=== PATIENT | male | born 1950 | race Caucasian/White ===

== ENCOUNTER 2016-10-14 09:14 | Outpatient (CLI) | payer MEDICARE, OTHER | END 2016-10-14 09:15 | disposition home or self-care (01) | DX: G47.30 Sleep apnea, unspecified (principal); G47.8 Other sleep disorders; G47.10 Hypersomnia, unspecified; R06.83 Snoring | CPT/HCPCS: 99203; G0463 ==

== ENCOUNTER 2016-11-06 20:01 | Outpatient (CLI) | payer MEDICARE, OTHER | END 2016-11-06 20:02 | disposition home or self-care (01) | LOC: SC 20:01 | PROVIDERS: ATTEND Internal Medicine Pulmonary Disease | DX: G47.33 Obstructive sleep apnea (adult) (pediatric) (principal); Z68.39 Body mass index [BMI] 39.0-39.9, adult | CPT/HCPCS: 95810 ==

== ENCOUNTER 2016-11-18 09:17 | Outpatient (CLI) | payer MEDICARE, OTHER | END 2016-11-18 09:18 | disposition home or self-care (01) | DX: G47.33 Obstructive sleep apnea (adult) (pediatric) (principal); I49.8 Other specified cardiac arrhythmias | CPT/HCPCS: 99214; G0463 ==

== ENCOUNTER 2017-03-13 15:01 | Outpatient (CLI) | payer MEDICARE, OTHER ==
--- NOTE | 2017-03-13 21:16 | XRAY Report ---
TWO VIEW CHEST: 03/13/2017 CLINICAL INDICATION: Chest pain, pressure, shortness of breath. COMPARISON: 05/12/2015 Frontal and lateral views of the chest demonstrate a normal cardiac silhouette. The lungs are hyperi nflated, compatible with COPD, with basilar atelectasis. No focal infiltrate, effusion, or pneumotho rax is present. IMPRESSION: COPD. NO EVIDENCE OF ACUTE CARDIOPULMONARY DISEASE. JOB #: [id number] EXT JOB #:[id number]
== END 2017-03-13 15:02 | disposition home or self-care (01) ==
LOC: DI.S 15:01
PROVIDERS: ATTEND Nurse Practitioner Family
DX: J44.9 Chronic obstructive pulmonary disease, unspecified (principal); R07.9 Chest pain, unspecified; R06.02 Shortness of breath
CPT/HCPCS: 71020; 93005

== ENCOUNTER 2017-05-15 13:32 | Outpatient (CLI) | payer MEDICARE, OTHER ==
--- NOTE | 2017-05-15 14:59 | XRAY Report ---
TWO-VIEW CHEST: 05/15/2017 CLINICAL INDICATION: COPD. COMPARISON: 03/13/2017 FINDINGS: Frontal and lateral views of the chest demonstrate a normal cardiac silhouette. The lungs remain hyperinflated, compatible with COPD, with linear scarring or atelectasis at the bases. No fo tiny consolidation, effusion, or pneumothorax is present. IMPRESSION: STABLE COPD. NO EVIDENCE OF ACUTE CARDIOPULMONARY DISEASE. JOB #: [id number] EXT JOB #:[id number]
== END 2017-05-15 13:33 | disposition home or self-care (01) ==
LOC: DI.S 13:32
PROVIDERS: ATTEND Nurse Practitioner Family
DX: J44.9 Chronic obstructive pulmonary disease, unspecified (principal)
CPT/HCPCS: 71020

== ENCOUNTER 2017-05-22 10:20 | Outpatient (CLI) | payer MEDICARE, OTHER ==
--- NOTE | 2017-05-22 13:00 | CARDIAC PROCEDURE NOTE ---
DATE OF SERVICE: 05/22/2017 00:00:00 PRIMARY CARE PHYSICIAN: Sharon Tomlin PA-C CARDIAC RISK FACTORS: Include age, diabetes, hypertension and hyperlipidemia. PREVIOUS CARDIAC PROCEDURES: No previous cardiac procedures. CLINICAL HISTORY: A 67-year-old male without known coronary artery disease but EKG evidence of Q-waves in V1 through V3. The patient held all of his antihypertensives this morning. PROCEDURE AND FINDINGS: The patient's identity and date verified. Consent signed. The patient performed treadmill exercise using a modified Riley protocol due to knee pain, completing 9 minutes 58 seconds and completing an estimated workload of 4.6 (METS) metabolic equivalents. Predicted METS was 7.2. Maximal blood pressure was 234/84 with a heart rate of 120 beats per minute or 79% of maximum predicted heart rate for age. The blood pressure response to exercise was hypertensive. The patient stopped because he was short of breath. The resting ECG demonstrated normal sinus rhythm with 1st degree AV block, late transition and Q-waves in leads V1 through V3. Maximal ST segment depression was less than 0.5 mm and upsloping. There were occasional PACs. The 1 minute heart rate recovery was within normal limits. FINAL IMPRESSION 1. Suboptimal test at 79% maximum age-predicted heart rate. 2. Negative stress electrocardiogram for ischemia by electrocardiographic criteria. 3. Negative stress test clinically for angina. Recovery from tachypnea took several minutes. 4. Occasional premature atrial contractions. JOB #: [id number] EXT JOB #:[id number]
[2017-05-22 17:08] VITALS: BP 162/88
--- NOTE | 2017-05-26 13:10 | XRAY Report ---
There was no imaging performed for this exam. Procedure notes and results available in the EMR. GABRIELLE
== END 2017-05-22 10:21 | disposition home or self-care (01) ==
LOC: DI 10:20
PROVIDERS: ATTEND Nurse Practitioner Family
DX: R94.31 Abnormal electrocardiogram [ECG] [EKG] (principal); R06.02 Shortness of breath
CPT/HCPCS: 93017

== ENCOUNTER 2017-11-17 08:47 | Outpatient (CLI) | payer MEDICARE, OTHER | END 2017-11-17 08:48 | disposition EMS.NT | LOC: EMS 08:47 | PROVIDERS: ATTEND Surgery | DX: Z77.098 Contact with and (suspected) exposure to other hazardous, chiefly nonmedicinal, chemicals (principal) ==

== ENCOUNTER 2019-06-22 09:17 | Outpatient (CLI) | payer MEDICARE, OTHER ==
[2019-06-22 09:53] LABS: BASOPHILS % (AUTO) 0.7 %; EOSINOPHILS # (AUTO) 0.2 10^3/uL (0.0-0.7); EOSINOPHILS % (AUTO) 3.9 %; HGB - HEMOGLOBIN 14.8 g/dL (14.0-18.0); LYMPHOCYTES # (AUTO) 1.9 10^3/uL (1.5-3.5); LYMPHOCYTES % (AUTO) 31.8 %; MEAN CORPUSCULAR HEMOGLOBIN 28.7 pg (27.0-31.0); MEAN CORPUSCULAR HGB CONC 31.4 g/dL (32.0-36.0); MEAN CORPUSCULAR VOLUME 91.7 fL (80.0-94.0); MEAN PLATELET VOLUME 9.1 fL (7.4-11.4); MONOCYTES # (AUTO) 0.4 10^3/uL (0.0-1.0); MONOCYTES % (AUTO) 7.5 %; NEUTROPHILS # (AUTO) 3.3 10^3/uL (1.5-6.6); NEUTROPHILS % (AUTO) 55.8 %; PLT - PLATELET COUNT 210 10^3/uL (130-450); RED BLOOD COUNT 5.15 10^6/uL (4.70-6.10); RED CELL DISTRIBUTION WIDTH 13.4 % (12.0-15.0); WHITE BLOOD COUNT 5.8 x10^3/uL (4.8-10.8)
[2019-06-22 10:15] LABS: HB2 TOTAL 15.8 g/dL; HEMOGLOBIN A1C 0.72 g/dL; HEMOGLOBIN A1C % 6.3 % (4.6-6.2)
== END 2019-06-22 09:18 | disposition home or self-care (01) ==
LOC: LAB 09:17
PROVIDERS: ATTEND Orthopaedic Surgery
DX: Z01.812 Encounter for preprocedural laboratory examination (principal); R73.9 Hyperglycemia, unspecified
CPT/HCPCS: 36415; 80051; 83036; 85025

== ENCOUNTER 2019-08-02 15:40 | Outpatient (CLI) | payer MEDICARE, OTHER ==
--- NOTE | 2019-08-02 16:08 | SLEEP CARE CONSULTATION ---
Information from patient questionnaire entered by Grazyna Steel. I have reviewed and concur with the information entered by Grazyna Steel. This document represents the service I personally performed and the decisions made by me, Amira De León MD, [facility]. History of Present Illness Previous diagnosis: Very Severe, Obstructive Sleep Apnea-Hypopnea Syndrome AHI: 80.5 Reason for follow up: annual Prior sleep studies: Yes Year and Where: 2016 [facility] additional information: HPI: Mr. Garg returned today for follow up of nasal CPAP therapy. He was diagnosed to have very severe obstructive sleep apnea-hypopnea syndrome over 2 years ago. The patient wore a full face mask. He quit using CPAP 6 months ago because the mask did not fit and had no help from the durable medical supplier at all. He returned the equipment to [facility]. The patient never returned for a follow up at the clinic after prescribed with the CPAP either. Subjective Patient concerns: reports: mask discomfort, other (not fitting correctly) Initial [place] Sleepiness Scale score: 15 Current [place] Sleepiness Scale score: 13 Allergies and Home Medications Drug allergies reviewed: Yes Home medication list reviewed: Yes Review of Systems Review of systems same as previous: Yes Physical Exam Weight: 287 lb Impression and Plan IMPRESSION: 1. Obstructive Sleep Apnea-Hypopnea Syndrome, very severe, presently untreated because his durable medical supplier was not helpful and the patient was non- compliant. To restart the treatment the patient will need a new sleep study, which could be a home sleep apnea test (HSAT). PLAN: 1. Order a home sleep apnea test (the patient does not wish to come into the sleep center for the study). 2. Try to lose weight 3. Prescription made for a new autoCPAP and supplies to a new durable medical supplier in case Medicare does not require a new sleep study. 4. Return for follow up after one month on the new machine. I spent 100% of this 20 minute visit face to face with the patient with greater than 50% of this was spent time counseling the patient and coordination of care.
== END 2019-08-02 15:41 | disposition home or self-care (01) ==
LOC: SC 15:40
PROVIDERS: ATTEND Internal Medicine Pulmonary Disease
DX: G47.33 Obstructive sleep apnea (adult) (pediatric) (principal)
CPT/HCPCS: 99213; G0463; 99212

== ENCOUNTER 2019-11-25 07:48 | Outpatient (CLI) | payer MEDICARE, OTHER ==
[2019-11-25 10:07] LABS: ALBUMIN 4.2 g/dL (3.2-5.5); ALBUMIN/GLOBULIN RATIO 1.2 (1.0-2.2); ALKALINE PHOSPHATASE 61 IU/L (42-121); ALT ALANINE AMINOTRANSFERASE 27 IU/L (10-60); AST ASPARTATE AMINOTRANSFERASE 23 IU/L (10-42); BILIRUBIN,TOTAL 0.3 mg/dL (0.2-1.0); BUN - BLOOD UREA NITROGEN 25 mg/dL (6-20); CALCIUM 9.2 mg/dL (8.5-10.3); CARBON DIOXIDE - CO2 27 mmol/L (21-32); CHLORIDE 96 mmol/L (101-111); CHOL/HDL RATIO 4.1 (<5.0); CHOLESTEROL 168 mg/dL; CREATININE 0.9 mg/dL (0.6-1.2); GLUCOSE 109 mg/dL (70-100); HDL CHOLESTEROL 41 mg/dL; LDL CHOLESTEROL,CALCULATED 88 mg/dL; LDL/HDL RATIO 2.1 (<3.6); SODIUM 136 mmol/L (135-145); TOTAL PROTEIN 7.7 g/dL (6.7-8.2); VLDL CHOLESTEROL 39 mg/dL
[2019-11-25 10:10] LABS: HB2 TOTAL 16.3 g/dL; HEMOGLOBIN A1C 0.68 g/dL
== END 2019-11-25 07:49 | disposition home or self-care (01) ==
LOC: LAB.S 07:48
PROVIDERS: ATTEND Family Medicine
DX: R73.03 Prediabetes (principal); E78.2 Mixed hyperlipidemia; I10 Essential (primary) hypertension
CPT/HCPCS: 36415; 80053; 80061; 83036; 83721

== ENCOUNTER 2019-11-29 16:32 | Outpatient (CLI) | payer MEDICARE, OTHER ==
--- NOTE | 2019-11-29 23:04 | SLEEP CARE CONSULTATION ---
Information from patient questionnaire entered by Shelley Cerrato. I have reviewed and concur with the information entered by Shelley Cerrato. This document represents the service I personally performed and the decisions made by me, Amira De León MD, [facility]. History of Present Illness Initial [place] Sleepiness Scale score: 15 Current [place] Sleepiness Scale score: 8 Additional HPI information: To minimize the risk of COVID-19 exposure, we have the option to conduct your visit with me over the phone. I will be able to discuss your health and offer medical advice. If you agree, we will bill your insurance. Do you agree to this telephone service: YES HPI: Mr. Garg returned for follow up of the sleep study he had on 10/31/2019. The polysomnography showed that the patient had slightly reduced sleep efficiency due to several awakenings after the sleep onset. The sleep architecture was abnormal for sleep fragmentation and reduced amount of time spent in REM and slow wave sleep (N3). Respiratory monitoring showed severe obstructive sleep apnea-hypopnea (AHI = 82.6) associated with frequent arousals, oxyhemoglobin desaturation and moderate hypoxia (marivel oxygen saturation of 63 %). The respiratory events occurred independently of sleep stage and body position (supine AHI = 99.6; non-supine = 80.90). Snore was loud in intensity. There was no significant periodic leg movement of sleep. Cardiac rhythm was sinus rhythm with occasional premature atrial and ventricular contractions and a 20-beat run of accelerated idioventricular rhythm. No abnormal behavior (parasomnia) observed during the night. The patient was informed of these findings. I explained to him the pathophysiology behind obstructive sleep apnea. We then spent quite a bit of time discussing different treatment options. For mild obstructive sleep apnea, surgery and oral appliance are alternatives to nasal CPAP therapy but in moderate or severe cases, nasal CPAP is the most effective and reliable treatment. Weight loss in an obese individual is strongly recommended. After some discussion, he opted use CPAP again. The patient used CPAP for many years but quit last year due to lack of supplies. Allergies and Home Medications Drug allergies reviewed: Yes Home medication list reviewed: Yes Review of Systems Review of systems same as previous: Yes Physical Exam Height: 6 ft Impression and Plan IMPRESSION: 1. Obstructive Sleep Apnea-Hypopnea Syndrome, very severe, associated with severe hypoxemia and sleep fragmentation. Obviously this is the cause of the patients symptoms of unrefreshed sleep, and excessive daytime sleepiness. As mentioned above, the patient will be started on an autoCPAP set at 4 - 15 cmH2O. Depending on his response and compliance he may be brought back for an overnight CPAP titration study. PLAN: 1. Prescription made for an autoCPAP, heated humidifier, and related supplies. 2. Attempt to lose weight and avoid alcohol consumption near bedtime. 3. The patient is again cautioned about driving until his sleepiness completely resolves on the CPAP therapy. 4. Return in six weeks for follow up. I will assess his response and compliance at that time. I spent 100% of the 12 minute phone call with the patient with greater than 50% of this spent counseling the patient and coordination of care.
== END 2019-11-29 16:33 | disposition home or self-care (01) ==
LOC: SC 16:32
PROVIDERS: ATTEND Internal Medicine Pulmonary Disease
DX: G47.33 Obstructive sleep apnea (adult) (pediatric) (principal)

== ENCOUNTER 2020-06-15 14:26 | Outpatient (CLI) | payer MEDICARE, OTHER ==
--- NOTE | 2020-06-15 14:52 | SLEEP CARE CONSULTATION ---
Information from patient questionnaire entered by Shelley Cerrato. I have reviewed and concur with the information entered by Shelley Cerrato. This document represents the service I personally performed and the decisions made by me, Sandhya Luna, RN, MSN, [employer]. History of Present Illness Service Date and Time: 06/15/2020 1400 Previous diagnosis: Severe, Obstructive Sleep Apnea-Hypopnea Syndrome AHI: 82.6 (in 2020 (80.5 in 2017) Reason for follow up: other (2 month with pressure change) Equipment type: CPAP Equipment obtained from: [employer] (in [place]) Mask style: Full face Mask brand: Resmed (Air fit) Backup mask available: Yes Last cushion change: about Prior sleep studies: Yes Year and Where: 2016 and 2019 - [facility] HPI additional information: Reviewed last visit notes. He purchased 2 new masks out of pocket and has not noticed any change in mask fit even with adjustment. CPAP Compliance Data - Data Reviewed with Patient Average duration of nightly device use: 6.75 Compliance rate %: 95 Current pressure setting (cmH2O): 14-18 Humidity settin Heated hose settin Average residual AHI: 6.5 Average large leak: 3 hr 17 min 36 sec Subjective Patient concerns: reports: dry mouth, nose, throat. denies: aerophagia, mask discomfort, air blowing in eyes, mask leak noise, condensation in mask/hose, nasal congestion, epistaxis Current pressure setting perceived as: comfortable On therapy, patient: reports: other (no change ). denies: sleeping better, awakening more refreshed, being more awake and alert during the day, more rested overall, drowsiness while driving Initial [place] Sleepiness Scale score: 15 (in 2017) Allergies and Home Medications Home medication list reviewed: No (no changes) Review of Systems Review of systems same as previous: Yes Physical Exam Height: 6 ft Impression and Plan 1. Obstructive Sleep Apnea-Hypopnea Syndrome, very severe, with good treatment compliance and mild residual AHI. The residual has reduced from 11.4 to 6.5 with last pressure adjustment. Thus I will keep this pressure as best so far in controlling apnea and if I raise the pressure any higher, the patient will experience more mask leaks. He voices frustration with finding a better fitting mask. He bought 2 out of pocket but fit no better. I offered a mask refitting and he declined as this would also be out of pocket. He was informed he can track mask leaks on device. He is also reporting oral dryness but does not use humidity as the reservoir leaks or the connection. I advised to have it checked for malfunction as the reservoir may need to be replaced but patient declined. He was counseled how oral dryness can cause dental caries and can use an oral rinse but declined. On CPAP therapy, the patient has noted no change. Patient's apnea severity and rationale for treatment to reduce apnea, improve sleep quality and reduce cardiovascular and cerebrovascular events was reviewed. I also reviewed the benefit of consistent device use of CPAP for hypertension. He is morbidly obese and aware of need to reduce weight. If he does start losing weight it can reduce his apnea and his CPAP pressure requirements so his pressure may need to be adjusted if significant weight loss. Symptoms to report for future pressure adjustment discussed. * Continue auto CPAP pressure at 14-18 cmH2O * Consider mask refitting when due * Consider replacement of reservoir * Notify me if snoring with mask or feeling that the pressure is too much or too little * Attempt to lose weight * Call this office if any problems using CPAP * Return for follow up in 1 year , or sooner if concerns arise Visit Type: Telehealth Phone Patient Location: Home Location of Provider: Office Patient agrees and consents to this telehealth visit type: Yes Patient agrees to have their insurance billed: Yes Time Spent with Patient (minutes): 17 Provider Statement: I spent 100% of the Telehealth Phone Call with the patient with greater than 50% spent counseling the patient and coordination of care.
== END 2020-06-15 14:27 | disposition home or self-care (01) ==
LOC: SC 14:26
PROVIDERS: ATTEND Nurse Practitioner Family
DX: G47.33 Obstructive sleep apnea (adult) (pediatric) (principal)

== ENCOUNTER 2022-03-23 08:00 | Outpatient (CLI) | payer MEDICARE, OTHER ==
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
== END 2022-03-23 23:59 | disposition home or self-care (01) ==
LOC: DI.S 08:00
PROVIDERS: ATTEND Physician Assistant
DX: M19.031 Primary osteoarthritis, right wrist (principal); M18.11 Unilateral primary osteoarthritis of first carpometacarpal joint, right hand; M19.041 Primary osteoarthritis, right hand

== ENCOUNTER 2022-06-24 14:17 | Outpatient (CLI) | payer MEDICARE, OTHER ==
[2022-06-24 16:34] VITALS: BP 126/62
--- NOTE | 2022-06-24 16:34 | SLEEP CARE CONSULTATION ---
Information from patient questionnaire entered by Suzan Culver. I have reviewed and concur with the information entered by Suzan Culver. This document represents the service I personally performed and the decisions made by me, Amira De León MD, [facility]. History of Present Illness Service Date and Time: 06/24/2022 1417 Previous diagnosis: Severe, Obstructive Sleep Apnea-Hypopnea Syndrome AHI: 82.6 (in 2020 (80.5 in 2017) Reason for follow up: annual (LAST SEEN 06/2021) Equipment type: CPAP (DREAMSTATION) Equipment obtained from: [employer] (in [place]) Mask style: Full face Prior sleep studies: Yes Year and Where: 2016 and 2019 - [facility] HPI additional information: Mr. Garg was diagnosed to have very severe obstructive sleep apnea-hypopnea syndrome and returns today for an annual follow up of CPAP therapy. The patient purchased the device from [employer] and was fitted with a full face mask. He said he has not used the CPAP for several months now. This is because his insomnia got worse and the CPAP made it harder to fall asleep. He was prescribed with zolpidem which no longer works. He goes to bed at 8 pm and gets out of bed at 4:30 am. He falls asleep again around 7 am watching TV for about 2 3 hours. Then, around 4 pm, he may sleep for another 1 2 hours. He complains of excessive daytime sleepiness which makes him quit driving. Sleep Study - Results Prior sleep studies: Yes Year and Where: 2016 and 2019 - [facility] CPAP Compliance Data - Data Reviewed with Patient Average duration of nightly device use: 5HRS,51MIN,6SEC Compliance rate %: 86.1 (01/16/2020-07/13/2020) Current pressure setting (cmH2O): 14-18 Average residual AHI: 11.5 Subjective Initial [place] Sleepiness Scale score: 15 (in 2017) Current [place] Sleepiness Scale score: 15 (06/24/2022) Allergies and Home Medications Drug allergies reviewed: Yes Home medication list reviewed: Yes Review of Systems Review of systems same as previous: Yes Physical Exam Vital signs obtained and entered by: YRIS CEDEÑO Blood Pressure: 126/62 (left arm) Cuff size: long Heart Rate: 66 O2 Saturation: 91 Height: 6 ft Weight: 304 lb 6.4 oz Body Mass Index: 41.3 BMI Classification: Morbidly Obese Impression and Plan IMPRESSION: 1. Obstructive Sleep Apnea-Hypopnea Syndrome, very severe (AHI was 80.5 in 2017) with the patient not using his CPAP due to worsening insomnia. His insomnia is worse because he has been feeling tired and less active during the day and taking more naps, totaling up to 5 hours. Therefore, he is sleeping significantly less at night. His weight has gone up 20 lbs since his sleep study in 2017. To improve his insomnia, he should avoid sleeping during the day. The patient would like a medication that can help him stay awake during the day. PLAN: 1. Continue with autoCPAP set at 14 - 18 cm H2O. 2. Try to lose weight 3. Avoid naps during the day. 4. Modafinil 200 mg in the morning. 5. Return in one month for a follow up. Counseling Topics: Weight control, Activity level Follow up with Sleep Care in: 1-2 months Visit Type: In Office Time Spent with Patient (minutes): 20 Provider Statement: I spent 100% of the Face to Face Visit with the patient with greater than 50% spent counseling the patient and coordination of care.
== END 2022-06-24 14:18 | disposition home or self-care (01) ==
LOC: SC 14:17
PROVIDERS: ATTEND Internal Medicine Pulmonary Disease
DX: G47.33 Obstructive sleep apnea (adult) (pediatric) (principal); E66.01 Morbid (severe) obesity due to excess calories; Z68.41 Body mass index [BMI] 40.0-44.9, adult
CPT/HCPCS: 99213; G0463; 99212

== ENCOUNTER 2022-07-22 13:30 | Outpatient (CLI) | payer MEDICARE, OTHER ==
[2022-07-22 21:46] VITALS: BP 142/70
--- NOTE | 2022-07-22 21:46 | SLEEP CARE CONSULTATION ---
Information from patient questionnaire entered by Sandy Llanos. I have reviewed and concur with the information entered by Sandy Llanos. This document represents the service I personally performed and the decisions made by me, Amira De León MD, [facility]. History of Present Illness Service Date and Time: 07/22/2022 1330 Previous diagnosis: Severe, Obstructive Sleep Apnea-Hypopnea Syndrome AHI: 82.6 (in 2020 (80.5 in 2017) Reason for follow up: one month Equipment type: CPAP (DREAMSTATION) Equipment obtained from: [employer] (in [place]) Mask style: Full face [facility]: Yes [facility] additional information: Mr. Garg was diagnosed to have very severe obstructive sleep apnea-hypopnea syndrome and returns today for an annual follow up of CPAP therapy. The patient purchased the device from [employer] and was fitted with a Respironics DreamWear nasal cushion mask full face mask. He did not the CPAP for several months. This was because his insomnia got worse, and the CPAP made it harder to fall asleep. He was prescribed with zolpidem which no longer works. He goes to bed at 8 pm and gets out of bed at 4:30 am. He falls asleep again around 7 am watching TV for about 2 3 hours. Then, around 4 pm, he may sleep for another 1 2 hours. He complains of excessive daytime sleepiness which makes him quit driving. I prescribed him modafinil 200 mg in the morning. He says that has been sleeping normally at night now but is still feeling depressed. He does not think that modafinil works. He is trying very hard to not nap during the day. He feels that the current pressure of 14 18 cmH2O is too high. Sleep Study - Results Prior sleep studies: Yes [facility] and [facility] Subjective Initial [place] Sleepiness Scale score: 15 (in 2017) Current [place] Sleepiness Scale score: 11 (07/22/22) Allergies and Home Medications Drug allergies reviewed: Yes Home medication list reviewed: Yes Review of Systems Review of systems same as previous: Yes Physical Exam Vital signs obtained and entered by: YRIS MCGEE Blood Pressure: 142/70 (right arm ) Cuff size: long Heart Rate: 91 O2 Saturation: 91 Height: 6 ft Weight: 296 lb Body Mass Index: 40.1 BMI Classification: Morbidly Obese Impression and Plan IMPRESSION: 1. Obstructive Sleep Apnea-Hypopnea Syndrome, very severe (AHI was 80.5 in 2017) with the patient back using his CPAP. According to him, he is again sleeping normally at night. He may continue to take modafinil as needed. For his comfort, I will lower the pressure to 10 16 cmH2O. Because the [facility] website is not working today, we will hold on to his memory card and mail it back to him later when we are able to change the pressure on it. PLAN: 1. Lower autoCPAP to 10 - 16 cm H2O on the memory card. 2. Try to lose weight 3. Take modafinil on as needed basis. 4. Return in one year. Adjust device pressure to (cmH2O): 10 - 16 Counseling Topics: Weight loss health impact Follow up with Sleep Care in: 1 year Follow up recommended for: Weight management Visit Type: In Office Time Spent with Patient (minutes): 15 Provider Statement: I spent 100% of the Face to Face Visit with the patient with greater than 50% spent counseling the patient and coordination of care.
== END 2022-07-22 13:31 | disposition home or self-care (01) ==
LOC: SC 13:30
PROVIDERS: ATTEND Internal Medicine Pulmonary Disease
DX: G47.33 Obstructive sleep apnea (adult) (pediatric) (principal); E66.01 Morbid (severe) obesity due to excess calories; Z68.41 Body mass index [BMI] 40.0-44.9, adult
CPT/HCPCS: 99212; G0463

== ENCOUNTER 2023-03-17 16:11 | Outpatient (CLI) | payer MEDICARE, OTHER ==
--- NOTE | 2023-03-17 14:33 | SLEEP CARE CONSULTATION ---
Information from patient questionnaire entered by Suzan Culver. I have reviewed and concur with the information entered by Suzan Culver. This document represents the service I personally performed and the decisions made by me, Amira De León MD, [facility]. History of Present Illness Service Date and Time: 03/17/2023 1420 Previous diagnosis: Severe, Obstructive Sleep Apnea-Hypopnea Syndrome AHI: 82.6 (in 2020 (80.5 in 2017) Reason for follow up: other (7 MONTH F/U NEEDS NEW DME) Equipment type: CPAP (DREAMSTATION SD CARD NEEDED) Equipment obtained from: [employer] (in [place]) Mask style: Full face Prior sleep [facility]: Yes [facility] H[facility] additional information: Mr. Garg was diagnosed to have very severe obstructive sleep apnea-hypopnea syndrome and was called today for a follow up of CPAP therapy. The patient is very unhappy with his durable medical supplier [employer]. He said they shipped him incorrect parts and he could no longer use his CPAP. He would like to switch to a different company. According to him, he has a [employer]ics Regine full face mask size M. Sleep Study - Results Prior sleep studies: Yes Year and Where[facility] 2016 [facility] Subjective Initial [place] Sleepiness Scale score: 15 (in 2017) Allergies and Home Medications Drug allergies reviewed: Yes Home medication list reviewed: Yes Review of Systems Review of systems same as previous: Yes Physical Exam Vital signs obtained and entered by: SUZAN Castillo MA Height: 6 ft Impression and Plan IMPRESSION: 1. Obstructive Sleep Apnea-Hypopnea Syndrome, very severe (AHI was 80.5 in 2017) with the patient not using his CPAP because of incorrect supplies being sent to him. I will switch him to a different durable medical supplier. PLAN: 1. Prescription made for supplies and sent to [employer] 2. 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 3. Return in six months. Mask provided: Yes Prescriptions: Device supplies (to [facility]) Follow up with Sleep Care in: 6 months Visit Type: In Office Patient Location: Home Patient agrees and consents to this telehealth visit type: Yes Patient agrees to have their insurance billed: Yes Time Spent with Patient (minutes): 15 Provider Statement: I spent 100% of the Face to Face Visit with the patient with greater than 50% spent counseling the patient and coordination of care.
== END 2023-03-17 16:12 | disposition home or self-care (01) ==
LOC: SC 16:11
PROVIDERS: ATTEND Internal Medicine Pulmonary Disease
DX: G47.33 Obstructive sleep apnea (adult) (pediatric) (principal)
CPT/HCPCS: 99212